=== PATIENT | male | born 1960 | race Caucasian/White ===

== ENCOUNTER 2020-03-20 17:27 | Observation (INO) | payer BC, MEDICAID ==
[2020-03-20] MEDS ORDERED: Aspirin 81 MG Tab.Chew PO ONE (17:34)
[2020-03-20] MEDS ORDERED: Nitroglycerin 2% Oint 1 GM UD Packet TOP ONE (17:34)
[2020-03-20] MEDS ORDERED: Sodium Chloride 0.9% 2.5 ML Syringe FLUSH PRN ×2 (17:34)
[2020-03-20] MEDS ORDERED: Sodium Chloride 0.9% 1,000 ML IV ONE (17:34)
[2020-03-20] MEDS ORDERED: Sodium Chloride 0.9% 10 ML Syringe FLUSH PRN (17:34)
--- NOTE | 2020-03-20 17:41 | EDM.PDOC ---
ED HPI GENERAL MEDICAL PROBLEM - General Chief Complaint: Cardiovascular Problem Stated Complaint: SHARP PAIN IN CHEST,DIZZINESS, NOSE BLEED Time Seen by Provider: 03/20/20 17:34 - History of Present Illness INITIAL COMMENTS - FREE TEXT/NARRATIVE: HISTORY AND PHYSICAL: History of present illness: This 60-year-old male with no significant past medical history presents to the emergency department complaining of a sudden onset of chest pain or shortness of breath. He denies diaphoresis or vomiting with this. No radiation of pain. He does feel short of breath. Is worse with exertion. Is better with rest. This began yesterday when he experienced a nosebleed. He thought that was odd and then started having chest discomfort. His current chest discomfort is a 1 or 2 out of 10. No other associated signs or symptoms. No other modifying, aggravating or alleviating factors. Review of systems: A 10-point review of systems, other than pertinent positives and negatives as stated per HPI, is otherwise negative. Past medical history: As per history of present illness and as reviewed below otherwise noncontributory. Surgical history: As per history of present illness and as reviewed below otherwise noncontributory. Social history: No reported history of drug or alcohol abuse. Family history: As per history of present illness and as reviewed below otherwise noncontributory. Physical exam: VITAL SIGNS: Reviewed. GENERAL: Appears to be in mild to moderate distress. HEAD: No signs of head trauma. EYES: Pupils are equal. Extraocular motions intact. EARS: Hearing grossly intact. MOUTH: Oropharynx is normal. NECK: No adenopathy, no JVD. CHEST: Chest with clear breath sounds bilaterally. No wheezes, rales, or rhonchi. CARDIAC: Regular rate and rhythm. Normal S1 and S2, without murmurs, gallops, or rubs. VASCULAR: Peripheral pulses normal and equal in all extremities. ABDOMEN: Soft, without detectable tenderness. No sign of distention. No rebound or guarding, and no masses palpated. MUSCULOSKELETAL: Good range of motion of all major joints. Extremities without clubbing, cyanosis or edema. NEUROLOGIC EXAM: Alert and oriented x 3. No focal sensory or motor deficits. Speech normal. Follows commands. PSYCHIATRIC: Mood normal. SKIN: No rash or lesions. Initial Differential Diagnosis & Plan: Differential diagnosis includes asthma, COPD, pneumonia, congestive heart failure, anemia, thyroid disease, acidosis, pulmonary embolism, myocardial infarction, sepsis. I will obtain the EKG, portable chest x-ray, CBC, complete metabolic panel, troponin, and evaluate him for d-dimer elevation. 12 lead EKG interpretation Obtained: March 20, 2020 at 5:32 PM Rhythm: Sinus tachycardia Rate: 108 [place]: Normal Intervals: Normal ST/T Segments: No acute ischemic changes Interpretation: Sinus tachycardia with poor R wave progression. Definitive disposition and diagnosis as appropriate pending reevaluation and review of above. chest Pain Score (Numeric/FACES): 3 - Related Data Allergies Allergy/AdvReac Type Severity Reaction Status Date / Time No Known Drug Allergies Allergy Cannot Verified 03/20/20 17:52 Remember Beer Allergy Severe Difficulty Uncoded 08/19/18 11:01 Breathing Home Meds: Home Meds Aspirin [Adult Low Dose Aspirin EC] 81 mg PO DAILY 08/19/18 [History] Past Medical History HEENT History: Reports: Other (See Below) Other HEENT History: uses reading glasses, has upper dental plate Cardiovascular History: Reports: None Respiratory History: Reports: None Gastrointestinal History: Reports: Colon Polyp Genitourinary History: Reports: None Musculoskeletal History: Reports: Fracture Other Musculoskeletal History: hx if fx hand Neurological History: Reports: None Psychiatric History: Reports: None Endocrine/Metabolic History: Reports: Obesity/BMI 30+ Hematologic History: Reports: None Immunologic History: Reports: None Oncologic (Cancer) History: Reports: Basal Cell Carcinoma Other Oncologic History: skin cancer removed from chest Dermatologic History: Reports: None - Infectious Disease History Infectious Disease History: Reports: Chicken Pox - Past Surgical History Head Surgeries/Procedures: Reports: None HEENT Surgical History: Reports: Tonsillectomy, Other (See Below) Other HEENT Surgeries/Procedures: partial hyoidectomy GI Surgical History: Reports: Colonoscopy, Hernia, Inguinal Social & Family History - Family History Family Medical History: Noncontributory Endocrine/Metabolic: Reports: Diabetes, Type I, Diabetes, type II Hematologic: Reports: Other (See Below) Other Hematologic Family History: leukemia Oncologic: Reports: Leukemia ED ROS GENERAL - Review of Systems Review Of Systems: See Below (see note) Reason Not Obtained: see note ED EXAM, GENERAL - Physical Exam Exam: Not Obtained (see note) Reason Not Obtained: see note EKG INTERPRETATION EKG Interpretation Comments: See my EKG interpretation above Course - Vital Signs Last Recorded V/S: Last Vital Signs Temp 96 F L 03/20/20 17:33 Pulse 106 H 03/20/20 18:34 Resp 16 03/20/20 18:34 BP 150/96 H 03/20/20 17:53 Pulse Ox 96 03/20/20 18:34 - Orders/Labs/Meds Orders: Active Orders 24 hr Category Date Time Status Cardiac Monitoring [RC] . DIRECTED Care 03/20/20 17:34 Active EKG Documentation Completion [RC] STAT Care 03/20/20 17:35 Active Oxygen Therapy [RC] ASDIRECTED Care 03/20/20 17:34 Active CTA Chest W WO Contrast [Ang Chest] [CT] Stat Exams 03/20/20 18:42 Ordered Sodium Chloride 0.9% [Saline Flush] Med 03/20/20 17:34 Active 10 ml FLUSH ASDIRECTED PRN Sodium Chloride 0.9% [Saline Flush] Med 03/20/20 17:34 Active 2.5 ml FLUSH ASDIRECTED PRN Saline Lock Insert [OM.PC] Stat Oth 03/20/20 17:34 Ordered Medication Orders Sodium Chloride (Saline Flush) 2.5 ml FLUSH ASDIRECTED PRN PRN Reason: Keep Vein Open Last Admin: 03/20/20 17:51 Dose: 2.5 ml Sodium Chloride (Saline Flush) 10 ml FLUSH ASDIRECTED PRN PRN Reason: Keep Vein Open Last Admin: 03/20/20 17:51 Dose: 10 ml Labs: Laboratory Tests 03/20/20 03/20/20 03/20/20 Range/Units 17:30 17:30 17:30 WBC 9.49 (4.0-11.0) K/uL RBC 5.64 (4.50-5.90) M/uL Hgb 18.5 H (13.0-17.0) g/dL Hct 51.1 H (38.0-50.0) % MCV 90.6 (80.0-98.0) fL MCH 32.8 H (27.0-32.0) pg MCHC 36.2 (31.0-37.0) g/dL RDW Std Deviation 43.8 (28.0-62.0) fl RDW Coeff of Christian 13 (11.0-15.0) % Plt Count 235 (150-400) K/uL MPV 10.90 (7.40-12.00) fL Neut % (Auto) 55.9 (48.0-80.0) % Lymph % (Auto) 34.2 (16.0-40.0) % Alfalfa % (Auto) 7.7 (0.0-15.0) % Eos % (Auto) 2.1 (0.0-7.0) % Baso % (Auto) 0.1 (0.0-1.5) % Neut # (Auto) 5.3 (1.4-5.7) K/uL Lymph # (Auto) 3.3 H (0.6-2.4) K/uL Alfalfa # (Auto) 0.7 (0.0-0.8) K/uL Eos # (Auto) 0.2 (0.0-0.7) K/uL Baso # (Auto) 0.0 (0.0-0.1) K/uL Nucleated RBC % 0.0 /100WBC Nucleated RBCs # 0 K/uL INR 1.04 D-Dimer, Quantitative 0.20 (0.0-0.50) mg/L FEU Sodium 137 (136-148) mmol/L Potassium 3.9 (3.5-5.1) mmol/L Chloride 100 (98-107) mmol/L Carbon Dioxide 29.4 (21.0-32.0) mmol/L BUN 13 (7.0-18.0) mg/dL Creatinine 1.1 (0.8-1.3) mg/dL Est Cr Clr Drug Dosing 71.89 mL/min Estimated GFR (MDRD) > 60.0 ml/min Glucose 112 H (74-106) mg/dL Calcium 9.9 (8.5-10.1) mg/dL Total Bilirubin 0.8 (0.2-1.0) mg/dL AST 54 H (15-37) IU/L ALT 84 H (14-63) IU/L Alkaline Phosphatase 96 (46-116) U/L Troponin I < 0.050 (0.000-0.056) ng/mL Total Protein 8.3 H (6.4-8.2) g/dL Albumin 4.6 (3.4-5.0) g/dL Globulin 3.7 (2.6-4.0) g/dL Albumin/Globulin Ratio 1.2 (0.9-1.6) Meds: Medications Generic Name Dose Route Start Last Admin Trade Name Favio PRN Reason Stop Dose Admin Sodium Chloride 2.5 ml 03/20/20 17:34 03/20/20 17:51 Saline Flush FLUSH 2.5 ml ASDIRECTED PRN Administration Keep Vein Open Sodium Chloride 10 ml 03/20/20 17:34 03/20/20 17:51 Saline Flush FLUSH 10 ml ASDIRECTED PRN Administration Keep Vein Open Discontinued Medications Generic Name Dose Route Start Last Admin Trade Name Coltonq PRN Reason Stop Dose Admin Aspirin 324 mg 03/20/20 17:34 03/20/20 17:49 Aspirin PO 03/20/20 17:35 324 mg ONETIME ONE Administration Sodium Chloride 1,000 mls @ 999 mls/hr 03/20/20 17:34 03/20/20 17:50 Normal Saline IV 03/20/20 18:34 999 mls/hr BOLUS ONE Administration Nitroglycerin 1 gm 03/20/20 17:34 03/20/20 17:50 Nitro-Bid 2% TOP 03/20/20 17:35 1 gm ONETIME ONE Administration Sodium Chloride 2.5 ml 03/20/20 17:34 Saline Flush FLUSH ASDIRECTED PRN Keep Vein Open - Re-Assessments/Exams Free Text/Narrative Re-Assessment/Exam: 03/20/20 19:06 Turned over to my colleague at 7 PM for follow-up on CT angiogram, repeat testing as indicated, and appropriate disposition. Departure - Departure Time of Disposition: 19:09 Disposition: Still A Patient 30 Clinical Impression: Chest pain - Discharge Information *PRESCRIPTION DRUG MONITORING PROGRAM REVIEWED*: Not Applicable *COPY OF PRESCRIPTION DRUG MONITORING REPORT IN PATIENT PEE: Not Applicable Referrals: Christiano Galan MD [Primary Care Provider] - Forms: ED Department Discharge Sepsis Event Note - Focused Exam Vital Signs: Vital Signs Temp Pulse Resp BP Pulse Ox 03/20/20 18:34 106 H 16 96 03/20/20 17:53 101 H 16 150/96 H 92 L 03/20/20 17:33 96 F L 105 H 16 143/103 H 93 L Date Exam was Performed: 03/20/20 Time Exam was Performed: 19:07 - My Orders Last 24 Hours: My Active Orders 03/20/20 17:34 Cardiac Monitoring [RC] . DIRECTED Oxygen Therapy [RC] ASDIRECTED Sodium Chloride 0.9% [Saline Flush] 10 ml FLUSH ASDIRECTED PRN Sodium Chloride 0.9% [Saline Flush] 2.5 ml FLUSH ASDIRECTED PRN Saline Lock Insert [OM.PC] Stat 03/20/20 17:35 EKG Documentation Completion [RC] STAT 03/20/20 18:42 CTA Chest W WO Contrast [Ang Chest] [CT] Stat - Assessment/Plan Last 24 Hours: My Active Orders 03/20/20 17:34 Cardiac Monitoring [RC] . DIRECTED Oxygen Therapy [RC] ASDIRECTED Sodium Chloride 0.9% [Saline Flush] 10 ml FLUSH ASDIRECTED PRN Sodium Chloride 0.9% [Saline Flush] 2.5 ml FLUSH ASDIRECTED PRN Saline Lock Insert [OM.PC] Stat 03/20/20 17:35 EKG Documentation Completion [RC] STAT 03/20/20 18:42 CTA Chest W WO Contrast [Ang Chest] [CT] Stat
--- NOTE | 2020-03-20 18:00 | CR ---
INDICATION: Chest pain and tachycardia. TECHNIQUE: AP portable chest x-ray. FINDINGS: Mild platelike opacity in the left lower lung lateral to the heart border consistent with platelike atelectasis or scarring. No focal infiltrate or consolidation either lung. Minimal fluid tracking along the fissure in right mid lung. Heart size normal. Mild thoracic curve. Chest otherwise negative. Dictated by Bladimir Agudelo MD @ Mar 20 2020 5:58PM Signed by Dr. Bladimir Agudelo @ Mar 20 2020 5:59PM
[2020-03-20 18:07] LABS: BLOOD UREA NITROGEN,BUN 13 mg/dL (7.0-18.0); CARBON DIOXIDE,CO2 29.4 mmol/L (21.0-32.0); CHLORIDE,CL 100 mmol/L (98-107); GLUCOSE RANDOM 112 mg/dL (74-106); POTASSIUM,K 3.9 mmol/L (3.5-5.1); SODIUM,NA 137 mmol/L (136-148)
[2020-03-20] MEDS ORDERED: Lactated Ringers 1,000 ML IV ONE (19:31)
[2020-03-20] MEDS ORDERED: Iopamidol 755 MG/ML 200 ML Multipack Bottle IVPUSH ONE (19:39)
--- NOTE | 2020-03-20 20:33 | CT ---
INDICATION: Dyspnea TECHNIQUE: CT chest pulmonary angiogram acquired with IV contrast. Approximately 50 cc of Omnipaque 350 contrast was administered intravenously COMPARISON: None FINDINGS: The heart is normal in size. There is no bowing of the intraventricular septum. The main pulmonary artery is normal in caliber.There are no filling defects within the pulmonary arteries to suggest a pulmonary embolus. There is no suspicious mediastinal, hilar or axillary adenopathy. There is minimal dependent atelectasis bilaterally. The lungs are otherwise clear. Negative for focal consolidation, pleural effusion or pneumothorax. The visualized portions of the upper abdomen are unremarkable. There are mild degenerative changes of the thoracic spine. IMPRESSION: Negative for pulmonary embolus. Clear lungs. Dictated by Lana Siddiqui MD @ 03/20/2020 8:33:06 PM Please note that all CT scans at this facility use dose modulation, iterative reconstruction, and/or weight-based dosing when appropriate to reduce radiation dose to as low as reasonably achievable. Dictated by: Lana Siddiqui MD @ 03/20/2020 20:33:44 (Electronically Signed)
[2020-03-20] MEDS ORDERED: Morphine 2 MG/ML Syringe IVPUSH PRN (22:24)
[2020-03-20] MEDS ORDERED: Sodium Chloride 0.9% 1,000 ML IV SCH (22:30)
[2020-03-20] MEDS ORDERED: Acetaminophen 325 MG Tab PO PRN (23:29)
[2020-03-20] MEDS: Acetaminophen 500 MG Tab PO PRN (23:57)
[2020-03-21] MEDS: Acetaminophen 500 MG Tab PO PRN (06:24)
[2020-03-21 06:50] LABS: BLOOD UREA NITROGEN,BUN 14 mg/dL (7.0-18.0); CARBON DIOXIDE,CO2 29.2 mmol/L (21.0-32.0); CHLORIDE,CL 103 mmol/L (98-107); GLUCOSE RANDOM 93 mg/dL (74-106); POTASSIUM,K 4.5 mmol/L (3.5-5.1); SODIUM,NA 139 mmol/L (136-148)
[2020-03-21] MEDS ORDERED: Aspirin 81 MG Tab.Chew PO SCH (09:00)
--- NOTE | 2020-03-21 09:06 | PCM.HP.2 ---
H&P History of Present Illness - General Date of Service: 03/21/20 Admit Problem/Dx: Admission Diagnosis/Problem Admission Diagnosis/Problem Chest pain in adult Chest pain/shortness of breath and lightheadedness Source of Information: Patient History Limitations: Reports: No Limitations - History of Present Illness Initial Comments - Free Text/Narative: Patient is a 60-year-old male with a significant past medical history of TIA presenting yesterday via ED for shortness of breath, chest discomfort and lightheadedness. Patient throughout admission states having 1 episodes of epistaxis which has since resolved. ED course: Patient was tachycardic and mildly hypoxic. EKG was within normal limits except for a sinus tachycardia of 102. And left axis deviation no signs of ischemia or arrhythmias appreciated. Labs performed showed mild ALT and AST elevations however troponins were negative chest x-ray only showed a mild opacity left lower lung field. Aspirin, nitroglycerin and 1 L of normal saline had been provided to patient. Throughout stay in ED chest pain had resolved along with shortness of breath. Radiology: CTA chest negative. BNP and troponin x3-. Hospital course: Patient since admission has been feeling asymptomatic seen at bedside this morning complaining of no chest pain or discomfort. Echo is still pending Headache Pain Score (Numeric/FACES): 9 chest Pain Score (Numeric/FACES): 3 - Related Data Allergies/Adverse Reactions: Allergies Allergy/AdvReac Type Severity Reaction Status Date / Time No Known Drug Allergies Allergy Other Verified 03/21/20 02:35 Beer Allergy Severe Difficulty Uncoded 03/21/20 02:35 Breathing Home Medications: Home Meds Aspirin [Adult Low Dose Aspirin EC] 81 mg PO DAILY 08/19/18 [History] atorvaSTATin [Lipitor] 10 mg PO BEDTIME 10 Days #10 tab 03/21/20 [Rx] Past Medical History HEENT History: Reports: Other (See Below) Other HEENT History: uses reading glasses, has upper dental plate Cardiovascular History: Reports: None Respiratory History: Reports: None Gastrointestinal History: Reports: Colon Polyp Genitourinary History: Reports: None Musculoskeletal History: Reports: Fracture Other Musculoskeletal History: hx if fx hand Neurological History: Reports: None Psychiatric History: Reports: None Endocrine/Metabolic History: Reports: Obesity/BMI 30+ Hematologic History: Reports: None Immunologic History: Reports: None Oncologic (Cancer) History: Reports: Basal Cell Carcinoma Other Oncologic History: skin cancer removed from chest Dermatologic History: Reports: None - Infectious Disease History Infectious Disease History: Reports: Chicken Pox - Past Surgical History Head Surgeries/Procedures: Reports: None HEENT Surgical History: Reports: Tonsillectomy, Other (See Below) Other HEENT Surgeries/Procedures: partial hyoidectomy GI Surgical History: Reports: Colonoscopy, Hernia, Inguinal Social & Family History - Family History Family Medical History: Noncontributory Endocrine/Metabolic: Reports: Diabetes, Type I, Diabetes, type II Hematologic: Reports: Other (See Below) Other Hematologic Family History: leukemia Oncologic: Reports: Leukemia - Tobacco Use Smoking Status *Q: Never Smoker Second Hand Smoke Exposure: No - Caffeine Use Caffeine Use: Reports: Coffee Caffeine Use Comment: just started drinking coffee this year - Alcohol Use Days Per Week of Alcohol Use: 0 - Recreational Drug Use Recreational Drug Use: No H&P Review of Systems - Review of Systems: Review Of Systems: See Below General: Reports: No Symptoms HEENT: Reports: No Symptoms Pulmonary: Reports: No Symptoms Cardiovascular: Reports: No Symptoms Gastrointestinal: Reports: No Symptoms Genitourinary: Reports: No Symptoms Musculoskeletal: Reports: No Symptoms Skin: Reports: No Symptoms Psychiatric: Reports: No Symptoms Neurological: Reports: No Symptoms Hematologic/Lymphatic: Denies: Easy Bruising Exam - Exam Exam: See Below - Vital Signs Vital Signs: Last Vital Signs Temp 97.2 F 03/21/20 04:00 Pulse 76 03/20/20 23:32 Resp 18 03/21/20 04:00 BP 119/75 03/21/20 04:00 Pulse Ox 97 03/21/20 04:00 Weight: 107.501 kg - Exam Quality Assessment: No: Supplemental Oxygen General: Alert, Oriented, Cooperative HEENT: EOMI Neck: Supple, Trachea Midline Lungs: Clear to Auscultation, Normal Respiratory Effort Cardiovascular: Regular Rate, Regular Rhythm GI/Abdominal Exam: Soft, Non-Tender Back Exam: Full Range of Motion Extremities: Non-Tender Skin: Warm, Dry, Intact Neurological: Cranial Nerves Intact Neuro Extensive - Mental Status: Alert, Oriented x3, Normal Mood/Affect Neuro Extensive - Motor, Sensory, Reflexes: Normal Gait, Normal Reflexes Psychiatric: Alert, Normal Affect, Normal Mood - Patient Data Lab Results Last 24 hrs: Laboratory Results - last 24 hr 03/20/20 03/20/2020 Range/Units 17:30 17:30 17:30 WBC 9.49 (4.0-11.0) K/uL RBC 5.64 (4.50-5.90) M/uL Hgb 18.5 H (13.0-17.0) g/dL Hct 51.1 H (38.0-50.0) % MCV 90.6 (80.0-98.0) fL MCH 32.8 H (27.0-32.0) pg MCHC 36.2 (31.0-37.0) g/dL RDW Std Deviation 43.8 (28.0-62.0) fl RDW Coeff of Christian 13 (11.0-15.0) % Plt Count 235 (150-400) K/uL MPV 10.90 (7.40-12.00) fL Neut % (Auto) 55.9 (48.0-80.0) % Lymph % (Auto) 34.2 (16.0-40.0) % [place] % (Auto) 7.7 (0.0-15.0) % Eos % (Auto) 2.1 (0.0-7.0) % Baso % (Auto) 0.1 (0.0-1.5) % Neut # (Auto) 5.3 (1.4-5.7) K/uL Lymph # (Auto) 3.3 H (0.6-2.4) K/uL [place] # (Auto) 0.7 (0.0-0.8) K/uL Eos # (Auto) 0.2 (0.0-0.7) K/uL Baso # (Auto) 0.0 (0.0-0.1) K/uL Nucleated RBC % 0.0 /100WBC Nucleated RBCs # 0 K/uL INR 1.04 D-Dimer, Quantitative 0.20 (0.0-0.50) mg/L FEU Sodium 137 (136-148) mmol/L Potassium 3.9 (3.5-5.1) mmol/L Chloride 100 (98-107) mmol/L Carbon Dioxide 29.4 (21.0-32.0) mmol/L BUN 13 (7.0-18.0) mg/dL Creatinine 1.1 (0.8-1.3) mg/dL Est Cr Clr Drug Dosing 71.89 mL/min Estimated GFR (MDRD) > 60.0 ml/min Glucose 112 H (74-106) mg/dL Calcium 9.9 (8.5-10.1) mg/dL Phosphorus (2.6-4.7) mg/dL Magnesium (1.8-2.4) mg/dL Total Bilirubin 0.8 (0.2-1.0) mg/dL AST 54 H (15-37) IU/L ALT 84 H (14-63) IU/L Alkaline Phosphatase 96 (46-116) U/L Troponin I < 0.050 (0.000-0.056) ng/mL B-Natriuretic Peptide (<100) PG/ML Total Protein 8.3 H (6.4-8.2) g/dL Albumin 4.6 (3.4-5.0) g/dL Globulin 3.7 (2.6-4.0) g/dL Albumin/Globulin Ratio 1.2 (0.9-1.6) Triglycerides (0-200) mg/dL Cholesterol (50-200) mg/dL LDL Cholesterol, Calc (60-180) mg/dL VLDL Cholesterol (5-55) mg/dL HDL Cholesterol (40-60) mg/dL Cholesterol/HDL Ratio (3.3-6.0) TSH 3rd Generation (0.36-3.74) uIU/mL 03/20/20 03/20/20 03/20/20 Range/Units 17:50 17:50 20:32 WBC (4.0-11.0) K/uL RBC (4.50-5.90) M/uL Hgb (13.0-17.0) g/dL Hct (38.0-50.0) % MCV (80.0-98.0) fL MCH (27.0-32.0) pg MCHC (31.0-37.0) g/dL RDW Std Deviation (28.0-62.0) fl RDW Coeff of Christian (11.0-15.0) % Plt Count (150-400) K/uL MPV (7.40-12.00) fL Neut % (Auto) (48.0-80.0) % Lymph % (Auto) (16.0-40.0) % [place] % (Auto) (0.0-15.0) % Eos % (Auto) (0.0-7.0) % Baso % (Auto) (0.0-1.5) % Neut # (Auto) (1.4-5.7) K/uL Lymph # (Auto) (0.6-2.4) K/uL [place] # (Auto) (0.0-0.8) K/uL Eos # (Auto) (0.0-0.7) K/uL Baso # (Auto) (0.0-0.1) K/uL Nucleated RBC % /100WBC Nucleated RBCs # K/uL INR D-Dimer, Quantitative (0.0-0.50) mg/L FEU Sodium (136-148) mmol/L Potassium (3.5-5.1) mmol/L Chloride (98-107) mmol/L Carbon Dioxide (21.0-32.0) mmol/L BUN (7.0-18.0) mg/dL Creatinine (0.8-1.3) mg/dL Est Cr Clr Drug Dosing mL/min Estimated GFR (MDRD) ml/min Glucose (74-106) mg/dL Calcium (8.5-10.1) mg/dL Phosphorus (2.6-4.7) mg/dL Magnesium (1.8-2.4) mg/dL Total Bilirubin (0.2-1.0) mg/dL AST (15-37) IU/L ALT (14-63) IU/L Alkaline Phosphatase (46-116) U/L Troponin I < 0.050 (0.000-0.056) ng/mL B-Natriuretic Peptide < 2 (<100) PG/ML Total Protein (6.4-8.2) g/dL Albumin (3.4-5.0) g/dL Globulin (2.6-4.0) g/dL Albumin/Globulin Ratio (0.9-1.6) Triglycerides (0-200) mg/dL Cholesterol (50-200) mg/dL LDL Cholesterol, Calc (60-180) mg/dL VLDL Cholesterol (5-55) mg/dL HDL Cholesterol (40-60) mg/dL Cholesterol/HDL Ratio (3.3-6.0) TSH 3rd Generation 2.20 (0.36-3.74) uIU/mL 03/20/20 03/21/20 03/21/20 Range/Units 23:40 06:00 06:00 WBC 9.34 (4.0-11.0) K/uL RBC 4.66 (4.50-5.90) M/uL Hgb 14.6 (13.0-17.0) g/dL Hct 43.2 (38.0-50.0) % MCV 92.7 (80.0-98.0) fL MCH 31.3 (27.0-32.0) pg MCHC 33.8 (31.0-37.0) g/dL RDW Std Deviation 45.8 (28.0-62.0) fl RDW Coeff of Christian 14 (11.0-15.0) % Plt Count 191 (150-400) K/uL MPV 10.90 (7.40-12.00) fL Neut % (Auto) 61.6 (48.0-80.0) % Lymph % (Auto) 28.1 (16.0-40.0) % [place] % (Auto) 8.2 (0.0-15.0) % Eos % (Auto) 2.0 (0.0-7.0) % Baso % (Auto) 0.1 (0.0-1.5) % Neut # (Auto) 5.8 H (1.4-5.7) K/uL Lymph # (Auto) 2.6 H (0.6-2.4) K/uL [place] # (Auto) 0.8 (0.0-0.8) K/uL Eos # (Auto) 0.2 (0.0-0.7) K/uL Baso # (Auto) 0.0 (0.0-0.1) K/uL Nucleated RBC % 0.0 /100WBC Nucleated RBCs # 0 K/uL INR D-Dimer, Quantitative (0.0-0.50) mg/L FEU Sodium 139 (136-148) mmol/L Potassium 4.5 (3.5-5.1) mmol/L Chloride 103 (98-107) mmol/L Carbon Dioxide 29.2 (21.0-32.0) mmol/L BUN 14 (7.0-18.0) mg/dL Creatinine 1.1 (0.8-1.3) mg/dL Est Cr Clr Drug Dosing 71.89 mL/min Estimated GFR (MDRD) > 60.0 ml/min Glucose 93 (74-106) mg/dL Calcium 8.8 (8.5-10.1) mg/dL Phosphorus 4.4 (2.6-4.7) mg/dL Magnesium 2.0 (1.8-2.4) mg/dL Total Bilirubin 0.8 (0.2-1.0) mg/dL AST 36 (15-37) IU/L ALT 64 H (14-63) IU/L Alkaline Phosphatase 70 (46-116) U/L Troponin I < 0.050 (0.000-0.056) ng/mL B-Natriuretic Peptide (<100) PG/ML Total Protein 6.2 L (6.4-8.2) g/dL Albumin 3.6 (3.4-5.0) g/dL Globulin 2.6 (2.6-4.0) g/dL Albumin/Globulin Ratio 1.4 (0.9-1.6) Triglycerides 137 (0-200) mg/dL Cholesterol 160 (50-200) mg/dL LDL Cholesterol, Calc 99 (60-180) mg/dL VLDL Cholesterol 27 (5-55) mg/dL HDL Cholesterol 34 L (40-60) mg/dL Cholesterol/HDL Ratio 4.7 (3.3-6.0) TSH 3rd Generation (0.36-3.74) uIU/mL Result Diagrams: 03/21/20 06:00 03/21/20 06:00 Sepsis Event Note - Evaluation Sepsis Screening Result: No Definite Risk - Focused Exam Vital Signs: Vital Signs Temp Pulse Resp BP Pulse Ox 03/21/20 04:00 97.2 F 18 119/75 97 03/20/20 23:32 96.8 F L 76 16 118/71 94 L 03/20/20 22:50 97.6 F 99 17 107/69 94 L 03/20/20 22:32 102 H 133/81 92 L 03/20/20 22:01 106 H 130/89 94 L Date Exam was Performed: 03/21/20 Time Exam was Performed: 11:27 Problem List Initiated/Reviewed/Updated: Yes Orders Last 24hrs: Active Orders 24 hr Category Date Time Status Patient Status [ADT] Stat ADT 03/20/20 22:14 Active Ambulate [RC] ASDIRECTED Care 03/20/20 22:20 Active Antiembolic Devices [RC] PER UNIT ROUTINE Care 03/20/20 22:21 Active Cardiac Monitoring [RC] Q8H Care 03/20/20 17:34 Active EKG Documentation Completion [RC] STAT Care 03/20/20 17:35 Active Oxygen Therapy [RC] PRN Care 03/20/20 22:20 Active Telemetry Monitoring [Cardiac Monitoring] [RC] Q8H Care 03/20/20 23:30 Active VTE/DVT Education [RC] PER UNIT ROUTINE Care 03/20/20 22:20 Active Vital Signs [RC] Q4H Care 03/20/20 22:20 Active Heart Healthy Diet [DIET] Diet 03/21/20 Breakfast Active Echo Comp wo Cont [US] Routine Exams 03/21/20 Ordered Acetaminophen [Tylenol Extra Strength] Med 03/20/20 23:38 Active 500 mg PO Q6H PRN Aspirin Med 03/21/20 09:00 Active 81 mg PO DAILY Morphine Med 03/20/20 22:24 Active 2 mg IVPUSH Q4H PRN Sodium Chloride 0.9% [Normal Saline] 1,000 ml Med 03/20/20 22:30 Active IV ASDIRECTED Sodium Chloride 0.9% [Saline Flush] Med 03/20/20 17:34 Active 10 ml FLUSH ASDIRECTED PRN Sodium Chloride 0.9% [Saline Flush] Med 03/20/20 17:34 Active 2.5 ml FLUSH ASDIRECTED PRN Saline Lock Insert [OM.PC] Stat Oth 03/20/20 17:34 Ordered Sequential Compression Device [OM.PC] Per Unit Routine Oth 03/20/20 22:20 Ordered Medication Orders Acetaminophen (Tylenol Extra Strength) 500 mg PO Q6H PRN PRN Reason: Headache/Pain Last Admin: 03/21/20 06:24 Dose: 500 mg Admin: 03/20/20 23:57 Dose: 500 mg Aspirin (Aspirin) 81 mg PO DAILY TEO Sodium Chloride (Normal Saline) 1,000 mls @ 125 mls/hr IV ASDIRECTED TEO Last Admin: 03/21/20 01:13 Dose: 125 mls/hr Morphine Sulfate (Morphine) 2 mg IVPUSH Q4H PRN PRN Reason: Pain Sodium Chloride (Saline Flush) 2.5 ml FLUSH ASDIRECTED PRN PRN Reason: Keep Vein Open Last Admin: 03/20/20 17:51 Dose: 2.5 ml Sodium Chloride (Saline Flush) 10 ml FLUSH ASDIRECTED PRN PRN Reason: Keep Vein Open Last Admin: 03/20/20 17:51 Dose: 10 ml Assessment/Plan Comment:: Assessment: 1. Acute chest pain/ACS ruled out with troponin negative x3 2. Shortness of breath resolved in the setting of left lower lung field atelectasis 3. Transaminitis. 4. Past medical history TIA, obesity Plan. 1. Patient was admitted as observation, full code, cardiac diet, Troponin x3-, chest x-ray showed left lower atelectasis/" platelike" CTA negative for pulmonary embolus. EKG: Left axis deviation with mild tachycardia; tachycardia now resolved. 2. We will continue aspirin daily, 3. On discharge patient will benefit from a outpatient stress test, will follow up with echo results; echo being performed this morning.. Discharge Summary: Following morning clinical examination did not yield any acute concerns. Troponin x3 were negative patient is asymptomatic and no longer having any episodes of epistaxis. Due to remote possible history of TIA we will start patient on 10 mg of Lipitor daily however patient was required to follow-up with outpatient PCP and or cardiology. Patient has also been set up with neurology secondary to remote possible history of TIA however patient cannot recall any MRI scans being performed. Ambulated well with nursing staff; did not endorse any dizziness, confusion and or CP. Will advise patient return to clinic and or notify provider if symptoms of dizziness, chest pain and or repeat epistaxis develop. Patient understood. Outpatient stress test prescription will be provided to the patient on discharge.
[2020-03-21 11:01] VITALS: BP 136/80; PULSE 74
--- NOTE | 2020-03-24 13:06 | ECHO ---
EXAM DATE: 03/20/20 PATIENT'S AGE: 60 The ECHO report has been scanned into [employer] and can be seen in this patient' s EMR (Electronic Medical Record) under the REPORTS section. The report has also been scanned into PACS. HE
== END 2020-03-21 15:15 | disposition home or self-care (01) ==
LOC: MW.ED 17:27 → MW.MS 22:14
PROVIDERS: ADMIT Student in an Organized Health Care Education/Training Program; ATTEND Student in an Organized Health Care Education/Training Program
DX: R07.89 Other chest pain (principal); R74.0 Nonspecific elevation of levels of transaminase and lactic acid dehydrogenase [LDH]; R06.02 Shortness of breath; R00.0 Tachycardia, unspecified; E66.9 Obesity, unspecified; Z86.73 Personal history of transient ischemic attack (TIA), and cerebral infarction without residual deficits; Z68.34 Body mass index [BMI] 34.0-34.9, adult; Z79.82 Long term (current) use of aspirin; Z79.899 Other long term (current) drug therapy
CPT/HCPCS: 36415; 71045; 71275; 80053; 80061; 83735; 83880; 84100; 84443; 84484; 85025; 85379; 85610; 93005; 93306; A9270; J7030; J7120; Q9967; 96360; 96361; 99284; 99285-25; G0378

== ENCOUNTER 2020-08-12 07:30 | Day surgery (SDC) | payer BC ==
[~2020-08-12 07:30] MED LIST: Glycopyrrolate 0.2 MG/ML SDV ONE; Lactated Ringers 1,000 ML IV SCH; Lidocaine 2% 5 ML SDV ONE; Midazolam 1 MG/ML 2 ML SDV ONE; Propofol 200 MG/20 ML SDV ONE
--- NOTE | 2020-08-12 08:13 | PCM.PREANE ---
Preanesthetic Assessment - Anesthesia/Transfusion/Family Hx Anesthesia History: Prior Anesthesia Reaction Other Type of Anesthesia Reaction Comment: extreme headache and heaviness in head lasting for days after surgery Family History of Anesthesia Reaction: No Transfusion History: No Prior Transfusion(s) Intubation History: Unknown - Review of Systems General: No Symptoms Pulmonary: No Symptoms Cardiovascular: No Symptoms Gastrointestinal: Constipation, Hematochezia, Other (h/o colon polyps 2 years ago) Neurological: No Symptoms Other: Reports: None - Physical Assessment Height: 5 ft 10 in Weight: 98.43 kg ASA Class: 2 Mental Status: Alert & Oriented x3 Airway Class: Mallampati = 2 Dentition: Reports: Dentures (upper) Thyro-Mental Finger Breadths: 3 Mouth Opening Finger Breadths: 3 ROM/Head Extension: Full Lungs: Clear to Auscultation, Normal Respiratory Effort Cardiovascular: Regular Rate, Regular Rhythm - Allergies Allergies/Adverse Reactions: Allergies Allergy/AdvReac Type Severity Reaction Status Date / Time No Known Drug Allergies Allergy Other Verified 08/08/20 09:05 Beer Allergy Severe Difficulty Uncoded 08/08/20 08:40 Breathing - Blood Blood Available: No - Anesthesia Plan Pre-Op Medication Ordered: None - Acknowledgements Anesthesia Type Planned: MAC Pt an Appropriate Candidate for the Planned Anesthesia: Yes Alternatives and Risks of Anesthesia Discussed w Pt/Guardian: Yes Pt/Guardian Understands and Agrees with Anesthesia Plan: Yes PreAnesthesia Questionnaire HEENT History: Reports: Other (See Below) Other HEENT History: uses reading glasses, has upper dental plate Cardiovascular History: Reports: High Cholesterol Respiratory History: Reports: None Gastrointestinal History: Reports: Colon Polyp, Diverticulosis, GERD Genitourinary History: Reports: None Musculoskeletal History: Reports: Fracture Other Musculoskeletal History: hx if fx hand Neurological History: Reports: TIA (consion for short period of time about 2 years ago) Psychiatric History: Reports: Other (See Below) (h/o anorexia) Endocrine/Metabolic History: Reports: Obesity/BMI 30+ (BMI 31.1) Hematologic History: Reports: None Immunologic History: Reports: None Oncologic (Cancer) History: Reports: Basal Cell Carcinoma Other Oncologic History: skin cancer removed from chest Dermatologic History: Reports: None - Infectious Disease History Infectious Disease History: Reports: Chicken Pox - Past Surgical History HEENT Surgical History: Reports: Tonsillectomy, Other (See Below) (hyoid bone surgery) GI Surgical History: Reports: Colonoscopy (2 years ago - polyps), Hernia, Inguinal (right) Dermatological Surgical History: Reports: None - SUBSTANCE USE Tobacco Use Status *Q: Never Tobacco User - HOME MEDS Home Medications: Home Meds Aspirin [Adult Low Dose Aspirin EC] 81 mg PO DAILY 08/19/18 [History] atorvaSTATin [Lipitor] 10 mg PO BEDTIME 10 Days #10 tab 03/21/20 [Rx] Cholecalciferol (Vitamin D3) [Vitamin D3] 1 tab PO DAILY 08/08/20 [History] Docusate Sodium [Stool Softener] 1 tab PO ASDIRECTED 08/08/20 [History] Famotidine [Pepcid AC] 1 tab PO ASDIRECTED 08/08/20 [History] - CURRENT (IN HOUSE) MEDS Current Meds: Current Medications Lactated Ringer's (Ringers, Lactated) 1,000 mls @ 125 mls/hr IV ASDIRECTED TEO Discontinued Medications Glycopyrrolate (Robinul) Confirm Administered Dose 0.2 mg .ROUTE .STK-MED ONE Stop: 08/12/20 07:09 Lidocaine (Xylocaine-Mpf 2%) Confirm Administered Dose 5 ml .ROUTE .STK-MED ONE Stop: 08/12/20 07:09 Midazolam HCl (Versed 1 Mg/Ml) Confirm Administered Dose 2 mg .ROUTE .STK-MED ONE Stop: 08/12/20 07:09 Propofol (Diprivan 20 Ml) Confirm Administered Dose 600 mg .ROUTE .STK-MED ONE Stop: 08/12/20 07:09
--- NOTE | 2020-08-12 09:57 | PCM.OPNOTE ---
- General Post-Op/Procedure Note Date of Surgery/Procedure: 08/12/20 Operative Procedure(s): Esophagogastroduodenoscopy with biopsy. Colonoscopy. Pre Op Diagnosis: Abdominal bloating. Epigastric and right upper quadrant pain. Change in bowel habits with history of colon polyps and rectal bleeding. Post-Op Diagnosis: Mild chronic gastritis. Mild sigmoid diverticulosis. Anesthesia Technique: MAC (ASA II) Primary Surgeon: Baldev Tavarez Street Sweeper: Vikas Mak Condition: Good Free Text/Narrative:: DICTATION [id number] CPT CODE 18923/83421
[2020-08-12] MEDS ORDERED: Lactated Ringers 1,000 ML IV SCH (10:00)
--- NOTE | 2020-08-12 10:21 | PCM.POSTAN ---
POST ANESTHESIA ASSESSMENT - MENTAL STATUS Mental Status: Alert, Oriented - VITAL SIGNS Vital Signs: Last Vital Signs Temp 36.2 C 08/12/20 09:50 Pulse 83 08/12/20 10:16 Resp 12 08/12/20 10:16 BP 116/77 08/12/20 10:16 Pulse Ox 96 08/12/20 10:16 - RESPIRATORY Respiratory Status: Respiratory Rate WNL, Airway Patent, O2 Saturation Stable - CARDIOVASCULAR CV Status: Pulse Rate WNL, Blood Pressure Stable - GASTROINTESTINAL GI Status: No Symptoms - PAIN Pain Score: 0 - POST OP HYDRATION Hydration Status: Adequate & Stable - OBSERVATIONS Free Text/Narrative:: No anesthesia problems
[2020-08-12 10:35] VITALS: BP 125/83; PULSE 79
--- NOTE | 2020-08-12 10:45 | PCM48HPAN ---
Post Anesthesia Note - EVALUATION WITHIN 48HRS OF ANESTHETIC Vital Signs in Normal Range: Yes Patient Participated in Evaluation: Yes Respiratory Function Stable: Yes Airway Patent: Yes Cardiovascular Function Stable: Yes Hydration Status Stable: Yes Pain Control Satisfactory: Yes Nausea and Vomiting Control Satisfactory: Yes Mental Status Recovered: Yes Vital Signs: Last Vital Signs Temp 36.2 C 08/12/20 10:25 Pulse 79 08/12/20 10:25 Resp 16 08/12/20 10:25 BP 125/83 08/12/20 10:25 Pulse Ox 97 08/12/20 10:25 - COMMENTS/OBSERVATIONS Free Text/Narrative:: No anesthesia problems
--- NOTE | 2020-08-12 11:01 | OR ---
SURGEON: Baldev Tavarez M.D. DATE OF PROCEDURE: 08/12/2020 OPERATION PERFORMED: Esophagogastroduodenoscopy with biopsy. PRIMARY SURGEON: Baldev Tavarez MD ANESTHESIA: MAC. ASA CLASSIFICATION: II. PREOPERATIVE DIAGNOSES: Epigastric and right upper quadrant pain with abdominal bloating. POSTOPERATIVE DIAGNOSES: Mild chronic gastritis. DESCRIPTION OF PROCEDURE: The patient was taken to the endoscopy room and positioned on the endoscopy table in the supine position. Time-out was called for appropriate identification of the patient and procedure. Monitored anesthesia care was provided. A bite block was placed between the patient's teeth. The gastroscope was then inserted through the bite block into the oropharynx and advanced without difficulty through the esophagus and stomach into the duodenum where examination was now carried out in a retrograde fashion. The duodenum showed no acute inflammatory changes or ulcerations. The stomach did show mild chronic gastritis. Antral biopsies were obtained to look for the presence of Helicobacter pylori. The gastroscope was retroflexed to visualize the proximal stomach. No mid or proximal lesions were identified. The gastroscope was then slowly withdrawn carefully visualizing the greater and lesser curvatures. No acute ulcerations were noted. The GE junction was well defined and showed no acute inflammatory changes or ulcerations. The esophagus demonstrated good contractility. No mid or proximal lesions were identified. The vocal cords were briefly visualized as the scope was withdrawn and noted to move symmetrically. The gastroscope was removed with the patient having tolerated this portion of the procedure well. Following colonoscopy, he was taken to recovery room in stable condition. CASH / MEKA /[id number]
--- NOTE | 2020-08-12 13:18 | OR ---
SURGEON: Baldev Tavarez M.D. DATE OF PROCEDURE: 08/12/2020 OPERATION PERFORMED: Colonoscopy. PRIMARY SURGEON: Baldev Tavarez M.D. ANESTHESIA: MAC ASA CLASSIFICATION: II. PREOPERATIVE DIAGNOSES: 1. Personal history of colon polyps. 2. Change in bowel habits. 3. Rectal bleeding. POSTOPERATIVE DIAGNOSIS: Mild sigmoid diverticulosis. DESCRIPTION OF PROCEDURE: With the patient having completed upper GI endoscopy, he was now positioned in the left lateral decubitus position. The colonoscope was inserted into the rectum and advanced with minimal difficulty to the cecum. Despite multiple maneuvers, I was never able to retroflex the colonoscope in the cecum. The colonoscope was then slowly withdrawn carefully visualizing the cecum, ascending colon, hepatic flexure, transverse colon, splenic flexure, and descending colon. No tumors, polyps, diverticular changes were noted anywhere throughout the proximal bowel. The sigmoid colon itself demonstrates a few scattered diverticula. No stricture, spasm, or bleeding was noted. No polyps were encountered in the colon. The colonoscope was then withdrawn to the rectum and retroflexed to visualize the anal orifice from above. Again, no tumors or polyps were seen, and there were no acute hemorrhoidal changes. The colonoscope was then straightened, the rectum aspirated, and the colonoscope removed. Digital rectal exam upon completion of the procedure did not reveal any intrarectal masses. The procedure was then terminated. The patient tolerated the procedure well and was taken to recovery room in satisfactory condition. CASH ACKERMAN /[id number]
== END 2020-08-12 11:35 | disposition home or self-care (01) ==
LOC: MW.SDS 07:30
PROVIDERS: ATTEND Surgery
DX: K57.30 Diverticulosis of large intestine without perforation or abscess without bleeding (principal); K29.50 Unspecified chronic gastritis without bleeding; M51.16 Intervertebral disc disorders with radiculopathy, lumbar region; E78.00 Pure hypercholesterolemia, unspecified; E66.9 Obesity, unspecified; Z79.82 Long term (current) use of aspirin; Z86.010 Personal history of colon polyps; Z79.899 Other long term (current) drug therapy; Z98.890 Other specified postprocedural states; Z86.73 Personal history of transient ischemic attack (TIA), and cerebral infarction without residual deficits; Z68.31 Body mass index [BMI] 31.0-31.9, adult
CPT/HCPCS: 43239; 45378; J2001; J2250; J2704; J3490; J7120

== ENCOUNTER 2021-06-04 23:39 | Emergency (ER) | payer BC ==
[2021-06-04 23:58] VITALS: BP 134/86; PULSE 97
[2021-06-05] MEDS ORDERED: Lidocaine 2% Viscous Solution 15 ML Cup PO ONE (00:09)
--- NOTE | 2021-06-05 01:08 | EDM.PDOC ---
ED HPI GENERAL MEDICAL PROBLEM - General Chief Complaint: ENT Problem Stated Complaint: NOSE BLEED Time Seen by Provider: 06/04/21 23:52 - History of Present Illness INITIAL COMMENTS - FREE TEXT/NARRATIVE: HISTORY AND PHYSICAL: History of present illness: 61-year-old gentleman with no significant past medical history who presents ER today secondary to epistaxis. Patient reports he had one episode of epistaxis in the past. Patient is not on any anticoagulation therapy. Patient denies any recent fevers, shakes, chills, nausea, vomiting, diarrhea, dysuria, frequency or urgency, chest pain, shortness of breath, dizziness, weakness, syncope. Review of systems: As per history of present illness and below otherwise all systems reviewed and negative. Past medical history: As per history of present illness and as reviewed below otherwise noncontributory. Surgical history: As per history of present illness and as reviewed below otherwise noncontributory. Social history: No reported history of drug abuse. Family history: As per history of present illness and as reviewed below otherwise noncontributory. Physical exam: This patient was seen and evaluated during the 2019 SARS-CoV-2 novel coronavirus pandemic period. Community viral transmission is ongoing at time of this encounter and the emergency department is operating under pandemic response procedures. Constitutional: Patient is oriented to person, place, and time. Appears well- developed and well-nourished. No distress. HEENT: Moist mucous membranes Head: Normocephalic and atraumatic Eyes: Right eye exhibits no discharge. Left eye exhibits no discharge. No scleral icterus Neck: Normal range of motion. No tracheal deviation present. Cardiovascular: Normal rate and regular rhythm. Pulmonary: Effort normal, no respiratory distress. Abdominal: No distention Musculoskeletal: Normal range of motion Neurologic: Alert and oriented to person, place and time. Skin: [address], warm and dry. Psychiatric: Normal mood and affect. Behavior is normal. Judgment and thought content normal. Nursing note and vital signs have been reviewed Patient with active bleeding of his right naris. Assessment and plan: This is a 61-year-old gentleman who presents ER today with acute onset of epistaxis prior to arrival. Patient's ER physical exam is significant for a significant amount of active bleeding out of both nares greater as the right. I had patient blow out all the clot in both nostrils and he continued to bleed. I was unable to control the epistaxis well enough to be able to look into his naris. After multiple attempts, I injected his right nare with approximately 3 cc of viscous lidocaine for anesthesia. A 7.5 cm nasal balloon was inserted into his right nares and inflated. Immediately after inflating the balloon, com plete hemostasis was obtained and patient felt much better. Patient's labs are all within normal limits. Patient will be instructed to follow-up with his doctor in the next 3 to 5 days for removal of his nasal balloon. Patient will get started on Keflex 500 mg 3 times a day for 5 days while the balloon is in place. Patient was monitored in the ER for approximately 1 hour post balloon placement and he is remained without further bleeding. This does not appear to be consistent with a posterior bleed is I was able to control bleeding easily with the anterior packing with the balloon. Reassessment at the time of disposition demonstrates that the patient is in no acute distress. The patient has remained stable throughout the entire ED visit and is without objective evidence for acute process requiring urgent intervention or hospitalization. The patient is stable for discharge, counseling is provided as documented above, discussed symptomatic treatment and specific conditions for return. I have spoken with the patient/caregiver and discussed todays findings, in addition to providing specific details for the plan of care. Questions are answered and there is agreement with the plan. Definitive disposition and diagnosis as appropriate pending reevaluation and review of above. Bilateral Nose Pain Score (Numeric/FACES): 1 - Related Data Allergies Allergy/AdvReac Type Severity Reaction Status Date / Time No Known Drug Allergies Allergy Other Verified 08/08/20 09:05 Beer Allergy Severe Difficulty Uncoded 08/08/20 08:40 Breathing Home Meds: Home Meds Aspirin [Adult Low Dose Aspirin EC] 81 mg PO DAILY 08/19/18 [History] atorvaSTATin [Lipitor] 10 mg PO BEDTIME 10 Days #10 tab 03/21/20 [Rx] Cholecalciferol (Vitamin D3) [Vitamin D3] 1 tab PO DAILY 08/08/20 [History] Docusate Sodium [Stool Softener] 1 tab PO ASDIRECTED 08/08/20 [History] Famotidine [Pepcid AC] 1 tab PO ASDIRECTED 08/08/20 [History] Past Medical History HEENT History: Reports: Other (See Below) Other HEENT History: uses reading glasses, has upper dental plate Cardiovascular History: Reports: None Respiratory History: Reports: None Gastrointestinal History: Reports: Colon Polyp, Diverticulosis, GERD Genitourinary History: Reports: None Musculoskeletal History: Reports: Fracture Other Musculoskeletal History: hx if fx hand Neurological History: Reports: TIA Psychiatric History: Reports: Other (See Below) Endocrine/Metabolic History: Reports: Obesity/BMI 30+ Hematologic History: Reports: None Immunologic History: Reports: None Oncologic (Cancer) History: Reports: Basal Cell Carcinoma Other Oncologic History: skin cancer removed from chest Dermatologic History: Reports: None - Infectious Disease History Infectious Disease History: Reports: Chicken Pox, Mumps - Past Surgical History Head Surgeries/Procedures: Reports: None HEENT Surgical History: Reports: Tonsillectomy, Other (See Below) Other HEENT Surgeries/Procedures: partial hyoidectomy Cardiovascular Surgical History: Reports: None Respiratory Surgical History: Reports: None GI Surgical History: Reports: Colonoscopy, Hernia, Inguinal Male Surgical History: Reports: None Endocrine Surgical History: Reports: None Neurological Surgical History: Reports: None Musculoskeletal Surgical History: Reports: None Oncologic Surgical History: Reports: None Dermatological Surgical History: Reports: None Social & Family History - Family History Family Medical History: No Pertinent Family History Endocrine/Metabolic: Reports: Diabetes, Type I, Diabetes, type II Hematologic: Reports: Other (See Below) Other Hematologic Family History: leukemia Oncologic: Reports: Leukemia - Tobacco Use Tobacco Use Status *Q: Never Tobacco User Second Hand Smoke Exposure: No - Caffeine Use Caffeine Use: Reports: Energy Drinks Caffeine Use Comment: just started drinking coffee this year - Recreational Drug Use Recreational Drug Use: No ED ROS GENERAL - Review of Systems Review Of Systems: See Below ED EXAM, GENERAL - Physical Exam Exam: See Below Course - Vital Signs Last Recorded V/S: Last Vital Signs Temp 96.8 F L 06/04/21 23:56 Pulse 97 06/04/21 23:56 Resp 18 06/04/21 23:56 BP 134/86 06/04/21 23:56 Pulse Ox 97 06/04/21 23:56 - Orders/Labs/Meds Orders: Active Orders 24 hr Category Date Time Status CBC WITH AUTO DIFF [HEME] Stat Lab 06/04/21 23:52 Ordered COMPREHENSIVE METABOLIC PN,CMP [CHEM] Stat Lab 06/04/21 23:52 Ordered INR,PT,PROTHROMBIN TIME [COAG] Stat Lab 06/04/21 23:52 Ordered Meds: Medications Discontinued Medications Generic Name Dose Route Start Last Admin Trade Name Favio PRN Reason Stop Dose Admin Lidocaine HCl 15 ml 06/05/21 00:09 Lidocaine 2% Viscous Solution 15 Ml Cup PO 06/05/21 00:10 ONETIME ONE Departure - Departure Time of Disposition: 01:06 Disposition: Home, Self-Care 01 Condition: Good Clinical Impression: Epistaxis - Discharge Information Instructions: Nosebleed, Adult Referrals: Chirstiano Galan MD [Primary Care Provider] - Additional Instructions: You were seen and evaluated in ER today secondary to excessive amount of bleeding at your right nostril. This required a packing with a nasal balloon that was inflated in order to apply pressure on the vessels that were bleeding. You will need to be on Keflex 500 mg 3 times a day for 5 days. Please make an appointment to see your doctor in 3 to 5 days so they can remove the nasal balloon. Please return to the ER if you start developing any new or concerning symptoms. The following information is given to patients seen in the emergency department who are being discharged to home. This information is to outline your options for follow-up care. We provide all patients seen in our emergency department with a follow-up referral. The need for follow-up, as well as the timing and circumstances, are variable depending upon the specifics of your emergency department visit. If you don't have a primary care physician on staff, we will provide you with a referral. We always advise you to contact your personal physician following an emergency department visit to inform them of the circumstance of the visit and for follow-up with them and/or the need for any referrals to a consulting specialist. The emergency department will also refer you to a specialist when appropriate. This referral assures that you have the opportunity for follow-up care with a specialist. All of these measure are taken in an effort to provide you with optimal care, which includes your follow-up. Under all circumstances we always encourage you to contact your private physician who remains a resource for coordinating your care. When calling for follow-up care, please make the office aware that this follow-up is from your recent emergency room visit. If for any reason you are refused follow-up, please contact the [facility] Emergency Department at and asked to speak to the emergency department charge nurse. [facility] - Primary Care [address] [place] [address] [facility] [address] [place] [address] Sepsis Event Note (ED) - Focused Exam Vital Signs: Vital Signs Temp Pulse Resp BP Pulse Ox 06/04/21 23:56 96.8 F L 97 18 134/86 97 - My Orders Last 24 Hours: My Active Orders 06/04/21 23:52 CBC WITH AUTO DIFF [HEME] Stat COMPREHENSIVE METABOLIC PN,CMP [CHEM] Stat INR,PT,PROTHROMBIN TIME [COAG] Stat - Assessment/Plan Last 24 Hours: My Active Orders 06/04/21 23:52 CBC WITH AUTO DIFF [HEME] Stat COMPREHENSIVE METABOLIC PN,CMP [CHEM] Stat INR,PT,PROTHROMBIN TIME [COAG] Stat
[2021-06-05 01:42] LABS: BLOOD UREA NITROGEN,BUN 16 mg/dL (7.0-18.0); CARBON DIOXIDE,CO2 29.5 mmol/L (21.0-32.0); CHLORIDE,CL 101 mmol/L (98-107); GLUCOSE RANDOM 156 mg/dL (74-106); POTASSIUM,K 3.4 mmol/L (3.5-5.1); SODIUM,NA 138 mmol/L (136-148)
== END 2021-06-05 02:28 | disposition home or self-care (01) ==
LOC: MW.ED 23:39
DX: R04.0 Epistaxis (principal); E66.9 Obesity, unspecified; Z91.018 Allergy to other foods; Z68.30 Body mass index [BMI] 30.0-30.9, adult; Z79.82 Long term (current) use of aspirin; Z79.899 Other long term (current) drug therapy
CPT/HCPCS: 36415; 80053; 85025; 85610; 99283; A9270; 30901

== ENCOUNTER 2021-06-06 07:31 | Emergency (ER) | payer BC ==
[2021-06-06] MEDS ORDERED: Oxymetazoline 0.05% Nasal Spray 15 ML Bottle NAS ONE (07:44)
--- NOTE | 2021-06-06 09:33 | EDM.PDOC ---
ED HPI GENERAL MEDICAL PROBLEM - General Chief Complaint: ENT Problem Stated Complaint: NOSE BLEED Time Seen by Provider: 06/06/21 07:36 - History of Present Illness INITIAL COMMENTS - FREE TEXT/NARRATIVE: CHIEF COMPLAINT(S): Bloody nose HISTORY OF PRESENT ILLNESS: This is a 60-year-old man with a past medical history of recent epistaxis status post nasal packing in the left nostril presents from the walk-in clinic after removal of nasal packing and resultant continued epistaxis. The patient states that he came in today to have the nasal packing removed. He states that after they removed it started to bleed a lot. He states that he has been applying pressure and has since decreased since being in the emergency department. He denies any use of anticoagulation. He denies any headache, blurry vision, sore throat. He denies any injury to his nose. He denies any other symptoms. REVIEW OF SYSTEMS: Constitutional: Denies fever, chills. Eyes: Denies eye pain Ears, Nose, Mouth, & Throat: Positive for epistaxis Neurological: Denies blurred vision PAST MEDICAL HISTORY: As per history of present illness and as reviewed below otherwise noncontributory. SURGICAL HISTORY: As per history of present illness and as reviewed below otherwise noncontributory. SOCIAL HISTORY: As per history of present illness and as reviewed below otherwise noncontributory. FAMILY HISTORY: As per history of present illness and as reviewed below otherwise noncontributory. EXAMINATION OF ORGAN SYSTEMS/BODY AREAS: Constitutional: Blood pressure is 137/90, heart rate 83, respiratory rate 18 with an oxygen saturation of 98% on room air. Temperature 35.8 General: Well-appearing middle-aged man in no acute distress Psychiatric: Appropriate mood and affect. Eyes: No scleral icterus or conjunctival erythema ENMT: Moist mucous membranes. No pharyngeal erythema mild amount of clot in the posterior pharynx. No obvious evidence of bleeding. Left nasal turbinate with some active venous oozing. No obvious area that I could localize. Right nostril is clear. No nasal erosion or septal hematoma. Cardiovascular: Regular, rate, and rhythm. No gallops, murmurs, or rubs. Bilateral upper extremity pulses symmetric and intact. No peripheral edema. No JVD. Respiratory: Lungs clear to auscultation bilaterally. No wheezes, rales, or rhonchi. Skin: No lesions or abrasions. Neurological: Alert, GCS 15 MEDICAL DECISION MAKING AND COURSE IN THE ED WITH INTERPRETATION/REVIEW OF DIAGNOSTIC STUDIES: This is a 60-year-old man with a past medical history of recent epistaxis status post nasal packing in the left nostril presents from the walk-in clinic after removal of nasal packing and resultant continued epistaxis. At this time I did encourage the patient to apply constant pressure to the neck 15 minutes and we will reevaluate. After approximately 15 minutes the bleeding did slow down. We were able to clean off the area. There does not appear to be any posterior nares active bleeding as there is small oozing from the anterior nares however still difficult to visualize. Therefore we will provide the patient with Afrin and then apply pressure again and reevaluate. After 15 minutes and application of Afrin the patient's bleeding had stopped. At this time we will clean the area and reevaluate for rebleeding and observe him in the emergency department. Patient was observed in the emergency department he did have some continued bleeding. Therefore we did nebulized lidocaine with epinephrine and had applied pressure. We will reevaluate. On reevaluation the patient's bleeding had completely stopped and he had no further rebleeding. I encouraged the patient to use a humidifier at home to not pick his nose and discussed other measures to not aggravate epistaxis. He was given strict return precautions. He was discharge and had no further questions DISPOSITION: The patient was discharged home in stable condition. The patient will follow up with primary care physician in 3 to 5 days CONDITION: Fair PROCEDURES: None FINAL IMPRESSION(S)/DIAGNOSES: 1. Acute epistaxis Hayden Knowles M.D. - Related Data Allergies Allergy/AdvReac Type Severity Reaction Status Date / Time Beer Allergy Severe Difficulty Uncoded 06/06/21 07:52 Breathing Home Meds: Home Meds Aspirin [Adult Low Dose Aspirin EC] 81 mg PO DAILY 08/19/18 [History] atorvaSTATin [Lipitor] 10 mg PO BEDTIME 10 Days #10 tab 03/21/20 [Rx] Cholecalciferol (Vitamin D3) [Vitamin D3] 1 tab PO DAILY 08/08/20 [History] Docusate Sodium [Stool Softener] 1 tab PO ASDIRECTED 08/08/20 [History] Past Medical History HEENT History: Reports: Epistaxis, Other (See Below) Other HEENT History: uses reading glasses, has upper dental plate Cardiovascular History: Reports: None Respiratory History: Reports: None Gastrointestinal History: Reports: Colon Polyp, Diverticulosis, GERD Genitourinary History: Reports: None Musculoskeletal History: Reports: Fracture Other Musculoskeletal History: hx if fx hand Neurological History: Reports: TIA Psychiatric History: Reports: None Endocrine/Metabolic History: Reports: Obesity/BMI 30+ Hematologic History: Reports: None Immunologic History: Reports: None Oncologic (Cancer) History: Reports: Basal Cell Carcinoma Other Oncologic History: skin cancer removed from chest Dermatologic History: Reports: None - Infectious Disease History Infectious Disease History: Reports: Chicken Pox, Mumps - Past Surgical History Head Surgeries/Procedures: Reports: None HEENT Surgical History: Reports: Tonsillectomy, Other (See Below) Other HEENT Surgeries/Procedures: partial hyoidectomy Cardiovascular Surgical History: Reports: None Respiratory Surgical History: Reports: None GI Surgical History: Reports: Colonoscopy, Hernia, Inguinal Male Surgical History: Reports: None Endocrine Surgical History: Reports: None Neurological Surgical History: Reports: None Musculoskeletal Surgical History: Reports: None Oncologic Surgical History: Reports: None Dermatological Surgical History: Reports: None Social & Family History - Family History Family Medical History: No Pertinent Family History Endocrine/Metabolic: Reports: Diabetes, Type I, Diabetes, type II Hematologic: Reports: Other (See Below) Other Hematologic Family History: leukemia Oncologic: Reports: Leukemia - Tobacco Use Tobacco Use Status *Q: Never Tobacco User - Caffeine Use Caffeine Use: Reports: Energy Drinks Caffeine Use Comment: just started drinking coffee this year - Recreational Drug Use Recreational Drug Use: No ED ROS GENERAL - Review of Systems Review Of Systems: See Below ED EXAM, GENERAL - Physical Exam Exam: See Below Course - Vital Signs Last Recorded V/S: Last Vital Signs Temp 35.8 C L 06/06/21 09:35 Pulse 76 06/06/21 10:15 Resp 18 06/06/21 10:15 BP 117/86 06/06/21 10:15 Pulse Ox 97 06/06/21 10:15 - Orders/Labs/Meds Meds: Medications Discontinued Medications Generic Name Dose Route Start Last Admin Trade Name Freq PRN Reason Stop Dose Admin Tranexamic Acid 1,000 mg/ 110 mls @ 660 mls/hr 06/06/21 09:41 06/06/21 10:31 Sodium Chloride IV 06/06/21 09:50 Not Given ONETIME ONE Lidocaine/Epinephrine 10 ml 06/06/21 09:40 06/06/21 10:31 Lidocaine 1% With Epinephrine 1:100,000 10 Ml Mdv INJECT 06/06/21 09:41 Not Given ONETIME ONE Lidocaine/Epinephrine Confirm 06/06/21 09:44 06/06/21 10:31 Lidocaine 1% With Epinephrine 1:100,000 20 Ml Mdv Administered 06/06/21 09:45 Not Given Dose 20 ml .ROUTE .STK-MED ONE Lidocaine/Epinephrine 20 ml 06/06/21 10:33 06/06/21 10:36 Lidocaine 1% With Epinephrine 1:100,000 20 Ml Mdv INJECT 06/06/21 10:34 20 ml ONETIME STA Administration Oxymetazoline HCl 1 ml 06/06/21 07:44 06/06/21 08:37 Oxymetazoline 0.05% Nasal [place] 15 Ml Bottle LESLY 06/06/21 07:45 1 ml ONETIME ONE Administration Tranexamic Acid Confirm 06/06/21 09:44 06/06/21 10:31 Tranexamic Acid 1,000 Mg/10 Ml Amp Administered 06/06/21 09:45 Not Given Dose 1,000 mg .ROUTE .STK-MED ONE Tranexamic Acid 1,000 mg 06/06/21 09:30 06/06/21 10:00 Tranexamic Acid 1,000 Mg/10 Ml Amp TOP 06/06/21 09:31 1,000 mg ONETIME ONE Administration Departure - Departure Time of Disposition: 09:33 Disposition: Home, Self-Care 01 Condition: Fair Clinical Impression: Epistaxis - Discharge Information *PRESCRIPTION DRUG MONITORING PROGRAM REVIEWED*: No *COPY OF PRESCRIPTION DRUG MONITORING REPORT IN PATIENT PEE: No Instructions: Nosebleed, [id number] Referrals: Christiano Galan MD [Primary Care Provider] - Forms: ED Department Discharge Additional Instructions: Your evaluated today on an emergent basis. At this time we were able to stop your bloody nose. As discussed I recommend a cold mist humidifier at least where you are sleeping. Please do not stick anything directly in the nose and if you have rebleeding please apply direct pressure for 15 minutes. If the bleeding continues I want you to return to the emergency department. If you have any worsening symptoms please return to the emergency department otherwise follow-up with your primary care physician. [facility] - Primary Care [address] [place] [address] [facility] [address] [place] [address] The patient is informed of any results of their evaluation and diagnostic workup and all questions are answered. They are given discharge instructions and return precautions. The patient is stable for discharge. The patient states they understand and agree with the plan and that they will return if their symptoms get worse or if they have any new concerns. The following information is given to patients seen in the emergency department who are being discharged to home. This information is to outline your options for follow-up care. We provide all patients seen in our emergency department with a follow-up referral. The need for follow-up, as well as the timing and circumstances, are variable depending upon the specifics of your emergency department visit. If you don't have a primary care physician on staff, we will provide you with a referral. We always advise you to contact your personal physician following an emergency department visit to inform them of the circumstance of the visit and for follow-up with them and/or the need for any referrals to a consulting specialist. The emergency department will also refer you to a specialist when appropriate. This referral assures that you have the opportunity for follow-up care with a specialist. All of these measure are taken in an effort to provide you with optimal care, which includes your follow-up. Under all circumstances we always encourage you to contact your private physician who remains a resource for coordinating your care. When calling for follow-up care, please make the office aware that this follow-up is from your recent emergency room visit. If for any reason you are refused follow-up, please contact the [facility] Emergency Department at and asked to speak to the emergency department charge nurse. Sepsis Event Note (ED) - Evaluation Sepsis Screening Result: No Definite Risk
[2021-06-06] MEDS ORDERED: Lidocaine 1% with EPINEPHrine 1:100,000 10 ML MDV INJECT ONE (09:40)
[2021-06-06] MEDS ORDERED: Tranexamic Acid 1,000 MG in Sodium Chloride 0.9% 100 ML IV ONE (09:41)
[2021-06-06] MEDS ORDERED: Lidocaine 1% with EPINEPHrine 1:100,000 20 ML MDV ONE (09:44)
[2021-06-06] MEDS ORDERED: Lidocaine 1% with EPINEPHrine 1:100,000 20 ML MDV INJECT STA (10:33)
[2021-06-06 12:43] VITALS: BP 117/86; PULSE 76
== END 2021-06-06 09:36 | disposition home or self-care (01) ==
LOC: MW.ED 07:31
DX: R04.0 Epistaxis (principal); E66.9 Obesity, unspecified; Z68.30 Body mass index [BMI] 30.0-30.9, adult; Z79.82 Long term (current) use of aspirin; Z79.899 Other long term (current) drug therapy
CPT/HCPCS: 99283

== ENCOUNTER 2021-06-08 19:45 | Emergency (ER) | payer BC ==
[2021-06-08] MEDS ORDERED: Lidocaine 2% Viscous Solution 15 ML Cup PO ONE (19:48)
[2021-06-08 19:49] VITALS: BP 168/80; PULSE 108
[2021-06-08] MEDS ORDERED: traMADol 50 MG Tab PO ONE ×2 (20:58→21:08)
--- NOTE | 2021-06-08 20:58 | EDM.PDOC ---
ED HPI GENERAL MEDICAL PROBLEM - General Chief Complaint: ENT Problem Stated Complaint: NOSE BLEED Time Seen by Provider: 06/08/21 19:50 - History of Present Illness INITIAL COMMENTS - FREE TEXT/NARRATIVE: HISTORY AND PHYSICAL: History of present illness: This is a 61-year-old gentleman who presents ER today secondary epistaxis out of his right nostril. Patient was seen and evaluated by me approximately 3 days ago for same complaint and a nasal balloon was inserted with excellent hemostasis obtained. Patient was instructed to leave the nasal balloon in for 3 to 5 days. Patient reports that approximately 1-1/2 days after the balloon was inserted he went to the urgent care center and had the balloon removed. Patient ports he did well until this evening when he started having significant amount of bleeding once again. Patient denies any recent fevers, shakes, chills, nausea, vomiting, diarrhea, dysuria, frequency, urgency, chest pain, shortness of breath, dizziness. This patient was seen and evaluated during the 2019 SARS-CoV-2 novel coronavirus pandemic period. Community viral transmission is ongoing at time of this encounter and the emergency department is operating under pandemic response procedures. Review of systems: As per history of present illness and below otherwise all systems reviewed and negative. Past medical history: As per history of present illness and as reviewed below otherwise noncontributory. Surgical history: As per history of present illness and as reviewed below otherwise noncontributory. Social history: No reported history of drug abuse. Family history: As per history of present illness and as reviewed below otherwise noncontributory. Physical exam: This patient was seen and evaluated during the 2019 SARS-CoV-2 novel coronavirus pandemic period. Community viral transmission is ongoing at time of this encounter and the emergency department is operating under pandemic response procedures. Constitutional: Patient is oriented to person, place, and time. Appears well- developed and well-nourished. No distress. HEENT: Moist mucous membranes Head: Normocephalic and atraumatic Eyes: Right eye exhibits no discharge. Left eye exhibits no discharge. No scleral icterus Neck: Normal range of motion. No tracheal deviation present. Cardiovascular: Normal rate and regular rhythm. Pulmonary: Effort normal, no respiratory distress. Abdominal: No distention Musculoskeletal: Normal range of motion Neurologic: Alert and oriented to person, place and time. Skin: [place], warm and dry. Psychiatric: Normal mood and affect. Behavior is normal. Judgment and thought content normal. Nursing note and vital signs have been reviewed Patient's ER physical exam is significant for significant amount of active bleeding out of his right naris and coughing up clots of blood. I had the patient blow up the clots from his nostril however he was still having significant amount of bleeding despite pressure. A 7.5 cm nasal balloon was once again inserted after his right nares was injected with approximately 5 cc of viscous lidocaine for anesthesia. Balloon was inflated and patient had immediate resolution of his active bleeding. Patient tolerated procedure well of been monitored in the ED for approximately 1 hour without further bleeding has been doing well. Diagnostics: [] Therapeutics: [] Assessment and plan: This is a 61-year-old gentleman who presents ER today secondary to active bleeding at from his right nares after premature removal of a nasal balloon from his right nares. A 7.5 cm nasal balloon was once again inserted after his right nares was injected with approximately 5 cc of viscous lidocaine for anesthesia. Balloon was inflated and patient had immediate resolution of his active bleeding. Patient tolerated procedure well of been monitored in the ED for approximately 1 hour without further bleeding has been doing well. Patient's hemoglobin has remained stable. Patient's vital signs are within normal limits. Patient has been instructed to follow-up with his doctor as scheduled on Saturday which is 5 days from now for removal of his balloon. Patient be given a dose of Ultram secondary to the discomfort in his right naris from the balloon as well as a prescription for Keflex for 5 more days. Reassessment at the time of disposition demonstrates that the patient is in no acute distress. The patient has remained stable throughout the entire ED visit and is without objective evidence for acute process requiring urgent intervention or hospitalization. The patient is stable for discharge, counseling is provided as documented above, discussed symptomatic treatment and specific conditions for return. I have spoken with the patient/caregiver and discussed todays findings, in addition to providing specific details for the plan of care. Questions are answered and there is agreement with the plan. Definitive disposition and diagnosis as appropriate pending reevaluation and review of above. - Related Data Allergies Allergy/AdvReac Type Severity Reaction Status Date / Time Beer Allergy Severe Difficulty Uncoded 06/06/21 07:52 Breathing Home Meds: Home Meds Aspirin [Adult Low Dose Aspirin EC] 81 mg PO DAILY 08/19/18 [History] atorvaSTATin [Lipitor] 10 mg PO BEDTIME 10 Days #10 tab 03/21/20 [Rx] Cholecalciferol (Vitamin D3) [Vitamin D3] 1 tab PO DAILY 08/08/20 [History] Docusate Sodium [Stool Softener] 1 tab PO ASDIRECTED 08/08/20 [History] Past Medical History HEENT History: Reports: Epistaxis, Other (See Below) Other HEENT History: uses reading glasses, has upper dental plate Cardiovascular History: Reports: None Respiratory History: Reports: None Gastrointestinal History: Reports: Colon Polyp, Diverticulosis, GERD Genitourinary History: Reports: None Musculoskeletal History: Reports: Fracture Other Musculoskeletal History: hx if fx hand Neurological History: Reports: TIA Psychiatric History: Reports: None Endocrine/Metabolic History: Reports: Obesity/BMI 30+ Hematologic History: Reports: None Immunologic History: Reports: None Oncologic (Cancer) History: Reports: Basal Cell Carcinoma Other Oncologic History: skin cancer removed from chest Dermatologic History: Reports: None - Infectious Disease History Infectious Disease History: Reports: Chicken Pox, Mumps - Past Surgical History Head Surgeries/Procedures: Reports: None HEENT Surgical History: Reports: Tonsillectomy, Other (See Below) Other HEENT Surgeries/Procedures: partial hyoidectomy Cardiovascular Surgical History: Reports: None Respiratory Surgical History: Reports: None GI Surgical History: Reports: Colonoscopy, Hernia, Inguinal Male Surgical History: Reports: None Endocrine Surgical History: Reports: None Neurological Surgical History: Reports: None Musculoskeletal Surgical History: Reports: None Oncologic Surgical History: Reports: None Dermatological Surgical History: Reports: None Social & Family History - Family History Family Medical History: No Pertinent Family History Endocrine/Metabolic: Reports: Diabetes, Type I, Diabetes, type II Hematologic: Reports: Other (See Below) Other Hematologic Family History: leukemia Oncologic: Reports: Leukemia - Tobacco Use Tobacco Use Status *Q: Never Tobacco User - Caffeine Use Caffeine Use: Reports: Energy Drinks Caffeine Use Comment: just started drinking coffee this year - Recreational Drug Use Recreational Drug Use: No ED ROS GENERAL - Review of Systems Review Of Systems: See Below ED EXAM, GENERAL - Physical Exam Exam: See Below Course - Vital Signs Last Recorded V/S: Last Vital Signs Temp 97 F 06/08/21 19:48 Pulse 108 H 06/08/21 19:48 Resp 20 06/08/21 19:48 BP 168/80 H 06/08/21 19:48 Pulse Ox 98 06/08/21 19:48 - Orders/Labs/Meds Labs: Laboratory Tests 06/08/21 Range/Units 20:30 WBC 6.77 (4.0-11.0) K/uL RBC 4.74 (4.50-5.90) M/uL Hgb 14.8 (13.0-17.0) g/dL Hct 42.2 (38.0-50.0) % MCV 89.0 (80.0-98.0) fL MCH 31.2 (27.0-32.0) pg MCHC 35.1 (31.0-37.0) g/dL RDW Std Deviation 44.2 (28.0-62.0) fl RDW Coeff of Christian 14 (11.0-15.0) % Plt Count 227 (150-400) K/uL MPV 10.60 (7.40-12.00) fL Neut % (Auto) 59.7 (48.0-80.0) % Lymph % (Auto) 29.0 (16.0-40.0) % [place] % (Auto) 7.1 (0.0-15.0) % Eos % (Auto) 4.1 (0.0-7.0) % Baso % (Auto) 0.1 (0.0-1.5) % Neut # (Auto) 4.0 (1.4-5.7) K/uL Lymph # (Auto) 2.0 (0.6-2.4) K/uL [place] # (Auto) 0.5 (0.0-0.8) K/uL Eos # (Auto) 0.3 (0.0-0.7) K/uL Baso # (Auto) 0.0 (0.0-0.1) K/uL Nucleated RBC % 0.0 /100WBC Nucleated RBCs # 0 K/uL Meds: Medications Discontinued Medications Generic Name Dose Route Start Last Admin Trade Name Freq PRN Reason Stop Dose Admin Lidocaine HCl 15 ml 06/08/21 19:48 Lidocaine 2% Viscous Solution 15 Ml Cup PO 06/08/21 19:49 ONETIME ONE Departure - Departure Time of Disposition: 20:56 Disposition: Home, Self-Care 01 Condition: Good Clinical Impression: Epistaxis - Discharge Information Instructions: Nosebleed, Adult Additional Instructions: You were seen and evaluated in the ER today secondary to bleeding from your right nostril. A nasal balloon was inserted and inflated and the bleeding has been well controlled. You will be given a prescription for Keflex 500 mg to take 3 times a day for the next 5 days. Please keep your appointment with your doctor on Saturday for removal of the balloon. You should expect a small amount of bleeding to occur periodically as the sponge on the balloon absorbs the blood. This is normal and should not be of much concern. Please return to the ER if you have increased amounts of nasal bleeding prior to then. The following information is given to patients seen in the emergency department who are being discharged to home. This information is to outline your options for follow-up care. We provide all patients seen in our emergency department with a follow-up referral. The need for follow-up, as well as the timing and circumstances, are variable depending upon the specifics of your emergency department visit. If you don't have a primary care physician on staff, we will provide you with a referral. We always advise you to contact your personal physician following an emergency department visit to inform them of the circumstance of the visit and for follow-up with them and/or the need for any referrals to a consulting specialist. The emergency department will also refer you to a specialist when appropriate. This referral assures that you have the opportunity for follow-up care with a specialist. All of these measure are taken in an effort to provide you with optimal care, which includes your follow-up. Under all circumstances we always encourage you to contact your private physician who remains a resource for coordinating your care. When calling for follow-up care, please make the office aware that this follow-up is from your recent emergency room visit. If for any reason you are refused follow-up, please contact the [facility] Emergency Department at and asked to speak to the emergency department charge nurse. Mihai Pollock [facility] - Primary Care [address] [place] [id number] [address] Sepsis Event Note (ED) - Evaluation Sepsis Screening Result: No Definite Risk - Focused Exam Vital Signs: Vital Signs Temp Pulse Resp BP Pulse Ox 06/08/21 19:48 97 F 108 H 20 168/80 H 98
[2021-06-08] MEDS ORDERED: Cephalexin 500 MG Cap PO ONE (20:59)
== END 2021-06-08 21:02 | disposition home or self-care (01) ==
LOC: MW.ED 19:45
DX: R04.0 Epistaxis (principal); Z91.018 Allergy to other foods; Z79.82 Long term (current) use of aspirin; Z79.899 Other long term (current) drug therapy
CPT/HCPCS: 30903; 36415; 85025; 99283; A9270

== ENCOUNTER 2023-03-16 16:12 | Emergency (ER) | payer OTHER, BC ==
[2023-03-16 16:45] VITALS: BP 147/102
[2023-03-16] MEDS ORDERED: Diphtheria,Pertussis(Acell),Tetanus Vaccine 0.5 ML Syringe IM ONE (18:08)
[2023-03-16] MEDS ORDERED: Octyl 2-Cyanoacrylate 1 g/1 mL 1 APPLIC PEN TOP STA (18:21)
[2023-03-16 19:05] VITALS: PULSE 78
== END 2023-03-16 19:01 | disposition home or self-care (01) ==
LOC: MW.ED 16:12
DX: S01.21XA Laceration without foreign body of nose, initial encounter (principal); E66.9 Obesity, unspecified; Z68.33 Body mass index [BMI] 33.0-33.9, adult; Z23 Encounter for immunization; Z91.048 Other nonmedicinal substance allergy status; W20.8XXA Other cause of strike by thrown, projected or falling object, initial encounter; Y93.01 Activity, walking, marching and hiking
CPT/HCPCS: 90471; 90715; 99283; A9270